=== PATIENT | female | born 1990 | race Caucasian/White ===

== ENCOUNTER → 2016-06-07 | Outpatient (REF) | payer OTHER ==
[~2016-06-07] MED LIST: COLA100C PO; FERR325T3 PO; IBUP-1114 PO; OXYC1TAB23 PO
[2016-06-07 18:40] LABS: PERCENT SATURATION 12.4 % (13.2-37.4)
[2016-06-07 19:08] LABS: RETIC HEMOGLOBIN CONTENT CHr 30.5 PG (24-36)
== END | disposition home or self-care (01) ==
LOC: M LAB REF 16:28
PROVIDERS: ATTEND Internal Medicine Medical Oncology
DX: D64.9 Anemia, unspecified (principal)

== ENCOUNTER → 2016-06-16 | Outpatient (REF) | payer OTHER | END | disposition home or self-care (01) | LOC: M LAB REF 12:34 | PROVIDERS: ATTEND Internal Medicine Medical Oncology | DX: D64.9 Anemia, unspecified (principal) ==

== ENCOUNTER 2016-10-24 09:07 | Emergency (ER) | payer OTHER ==
[~2016-10-24] VITALS: Ht 160 cm; Wt 53.5 kg
[~2016-10-24 09:07] MED LIST changes: -COLA100C PO; +COLA100C3 PO
[2016-10-24] MEDS ORDERED: NS 1,000 ML IV ONE (10:45)
[2016-10-24 11:20] LABS: BASO % 0.7 % (0.0-1.0); EOS # 0.1 K/mm3 (0.0-0.50); EOS % 2.4 % (0.0-3.0); LARGE UNSTAINED CELL # 0.2 K/mm3 (0.0-0.4); LARGE UNSTAINED CELL % 2.5 % (0.0-4.0); LYMPH # 2.6 K/mm3 (1.5-6.5); LYMPH % 43.3 % (24.0-44.0); MEAN CORPUSCULAR HEMOGLOBIN 28.7 pg (27.0-33.0); MEAN CORPUSCULAR HGB CONC 33.9 g/dl (32.0-36.5); MEAN CORPUSCULAR VOLUME 84.8 fl (80.0-96.0); MONO # 0.3 K/mm3 (0.0-0.8); MONO % 5.1 % (0.0-5.0); NEUTROPHILS # 2.7 K/mm3 (1.8-7.7); NEUTROPHILS % 45.9 % (36.0-66.0); PLATELET COUNT, AUTOMATED 185 k/mm3 (150-450); WHITE BLOOD COUNT 5.9 K/mm3 (4.0-10.0)
[2016-10-24] MEDS ORDERED: NAPR500T PO (12:10)
[2016-10-24 12:13] VITALS: BP 104/66
== END 2016-10-24 12:25 | disposition home or self-care (01) ==
LOC: M ED 10:03
DX: N92.0 Excessive and frequent menstruation with regular cycle (principal); E28.2 Polycystic ovarian syndrome

== ENCOUNTER 2017-01-01 15:21 | Emergency (ER) | payer OTHER ==
[~2017-01-01] VITALS: Ht 160 cm; Wt 59.1 kg
[~2017-01-01 15:21] MED LIST changes: -COLA100C3 PO; +COLA100C5 PO; +NAPR500T PO
[2017-01-01 15:22] VITALS: BP 134/93
[2017-01-01] MEDS ORDERED: IRON65TA PO (15:34)
== END 2017-01-01 16:48 | disposition left against medical advice (07) ==
LOC: M ED 15:21
DX: R68.89 Other general symptoms and signs (principal); Z53.29 Procedure and treatment not carried out because of patient's decision for other reasons